=== PATIENT | female | born 1995 | race Caucasian/White ===

== ENCOUNTER 2019-07-30 08:16 | Outpatient (CLI) | payer BC, SELFPAY ==
[2019-07-31 10:14] LABS: FSH 3.7 mIU/mL (See Note); LH 4.9 mIU/mL (See Note)
[2019-07-31 11:50] LABS: Estradiol 51 pg/mL (See Note)
[2019-08-03 16:59] LABS: Antimullerian Hormone 6.7 ng/mL (0.9-9.5)
== END 2019-07-30 08:36 ==
PROVIDERS: PCP General Practice; Visit Provider Obstetrics & Gynecology Gynecology
DX: Z31.9 Encounter for procreative management, unspecified (principal)
CPT/HCPCS: 36415; 82670; 83001; 83002; 83520

== ENCOUNTER 2019-08-10 11:57 | Outpatient (CLI) | payer BC, SELFPAY ==
[2019-08-11 10:53] LABS: FSH 6.4 mIU/mL (See Note)
[2019-08-11 15:39] LABS: Estradiol 400 pg/mL (See Note)
== END 2019-08-10 12:17 ==
PROVIDERS: PCP General Practice; Visit Provider Obstetrics & Gynecology Gynecology
DX: Z31.9 Encounter for procreative management, unspecified (principal)
CPT/HCPCS: 36415; 82670; 83001

== ENCOUNTER 2019-09-15 02:05 | Outpatient (CLI) | payer BC, SELFPAY ==
--- NOTE | 2019-09-15 07:00 | DI.RAD_ITS ---
EXAM: RF HYSTEROSALPINGOGRAM CLINICAL HISTORY: assess tubal patency,desire for ,Z31.9 TECHNIQUE: 2D and realtime digital imaging was performed. Fluoro time: 0.13 sec, 5.36 mGy CONTRAST MATERIAL: Water soluble contrast was administered. COMPARISON: No exams were available for comparison FINDINGS: Fluoroscopically-guided hysterosalpingogram. The cervical opening was cannulated by Dr. Lo. Th en under fluoroscopic guidance, water-soluble contrast was injected in a retrograde fashion. The uterus fills normally, with no evidence of contour abnormality, filling defect, septum, stricture , mass, or bicornuate configuration. The bilateral uterine tubes are normal and patent with normal ra pid spillage of contrast into the peritoneum. IMPRESSION: Normal hysterosalpingogram.
[2019-09-15] MEDS: Omnipaque 350 MG/ML 50 ML BTL IV (10:27)
--- NOTE | 2019-09-15 12:16 | OPPNE_ITS ---
DATE OF SERVICE: SEPTEMBER 15, 2019 HPI Patient is a 24-year-old G0 female who presents to diagnostic imaging department for a hysterosalpingogram. Patient been counseled at previous office visit regarding the need for an evaluation of tubal patency. Approximately 2.5 years of unprotected intercourse with the same partner without . Laboratory analysis showed normal ovarian reserve and an intact hypothalamic pituitary axis. Exam Other: The patient on the exam table in diagnostic imaging her hips are elevated with use of a pillow in a bivalve speculum was placed in the vagina. The cervix was cleansed with Betadine and a HSG catheter was inserted into the uterine cavity and the bulb inflated and the catheter left in place. Under direct fluoroscopy 10 cc of water-soluble contrast material was injected into the uterine cavity and spillage of the dye was noted from the fallopian tubes bilaterally. At the completion of the procedure instruments removed from the patient's vagina. She was informed of the results of the test. She tolerated the procedure well.
== END 2019-09-15 02:25 ==
PROVIDERS: PCP General Practice; Visit Provider Obstetrics & Gynecology Gynecology
DX: Z31.41 Encounter for fertility testing (principal)
CPT/HCPCS: 58340; 76831; 74740; Q9967

== ENCOUNTER 2020-11-16 03:14 | Outpatient (CLI) | payer BC, SELFPAY ==
[2020-11-16 16:26] LABS: *AMPHETAMINES SCREEN URINE Negative (Negative); *BARBITURATES SCREEN URINE Negative (Negative); *BENZODIAZEPINES SCREEN URINE Negative (Negative); Cannabinoids THC Negative (Negative); Cocaine Screen,Urine Negative (Negative); METHADONE URINE SCREEN Negative (Negative); OPIATES URINE SCREEN Negative (Negative)
[2020-11-16 17:26] LABS: Tricyclic Antidepressants Negative (Negative)
[2020-11-17 14:03] LABS: Chlamydia Result Negative (Negative); GC Result Negative (Negative)
[2020-11-19 12:24] LABS: Buprenorphine Negative ng/mL (Cutoff: 5.0); Norbuprenorphine Negative ng/mL (Cutoff: 2.5)
== END 2020-11-16 03:15 | disposition home or self-care (01) ==
LOC: LBO 03:14
PROVIDERS: PCP General Practice; Visit Provider Advanced Practice Midwife
DX: Z34.91 Encounter for supervision of normal pregnancy, unspecified, first trimester (principal); Z11.3 Encounter for screening for infections with a predominantly sexual mode of transmission
CPT/HCPCS: 80307; 87491; 87591; 87086; 87480; 87510; 87660

== ENCOUNTER 2020-11-23 03:40 | Outpatient (CLI) | payer BC, SELFPAY ==
[2020-11-23 11:17] LABS: Kit/Specimen SENT
[2020-11-23 11:31] LABS: Glucose,1 Hr (Glucola) 92 mg/dL (80-140)
[2020-11-24 08:52] LABS: Hepatitis B Surface Ag Negative (Negative)
[2020-11-24 09:25] LABS: HIV-1/2 Ag & Ab Screen Negative (Negative)
[2020-11-24 09:44] LABS: Hepatitis C Ab w Rflx HCV PCR Negative (Negative)
[2020-11-24 09:52] LABS: Varicella IgG Antibody Positive (See Note)
[2020-11-24 09:55] LABS: Rubella IgG Ab (UVM) Positive (See Note)
[2020-11-25 11:24] LABS: Syphilis Total Ab w/Reflex Nonreactive (Nonreactive)
[2020-11-30 01:44] LABS: Specimen WB Whole Blood
[2020-12-06 02:35] LABS: Result Summary NEGATIVE; Specimen WB Whole Blood
== END 2020-11-23 03:41 | disposition home or self-care (01) ==
LOC: LBO 03:40
PROVIDERS: Advanced Practice Midwife; PCP General Practice; Visit Provider Advanced Practice Midwife
DX: Z34.91 Encounter for supervision of normal pregnancy, unspecified, first trimester (principal); Z11.4 Encounter for screening for human immunodeficiency virus [HIV]; Z11.59 Encounter for screening for other viral diseases; Z36.89 Encounter for other specified antenatal screening; Z01.84 Encounter for antibody response examination
CPT/HCPCS: 36415; 81329; 82950; 86787; 86803; 86850; 86900; 86901; 87340; 87389; 81220; 86762; 86780

== ENCOUNTER → 2021-03-03 04:31 | Outpatient (CLI) | payer BC, SELFPAY ==
--- NOTE | 2021-03-03 08:00 | DI.US_ITS ---
Exam(s) US OB JOEL WEIGHT EXAM: US OB JOEL WEIGHT CLINICAL HISTORY: borderline low JOEL,Z34.90 TECHNIQUE: Ultrasound performed using standard protocol. COMPARISON: US US OB 2-3 TRIMESTER from 01/23/2021 FINDINGS: Ob ultrasound was performed utilizing 2nd to 3rd trimester protocol. biometry is consistent wi th gestational age of 25 weeks 5 days and EDC of June 11. Estimated weight is 757 grams which is at the 81st percentile for predicted gestational age. Placenta is posterior with no placenta previa. There is visually a normal quantity of amniotic fluid and the JOEL is 14. heart rate was 149 BPM. IMPRESSION: DATA REPOSITORY:
== END ==
PROVIDERS: PCP General Practice; Visit Provider Advanced Practice Midwife
DX: Z34.92 Encounter for supervision of normal pregnancy, unspecified, second trimester (principal); Z3A.25 25 weeks gestation of pregnancy
CPT/HCPCS: 76816

== ENCOUNTER 2021-03-08 10:49 | Observation (INO) | payer BC, SELFPAY ==
[2021-03-08 11:03] LABS: Source Nasal/Nares
[2021-03-08 11:07] LABS: Bilirubin Negative (Negative); Blood Negative (Negative); Clarity Clear (Clear); Glucose Negative (Negative); Ketones Negative (Negative); Leukocyte Esterase Trace (Negative); Nitrite Negative (Negative); Urobilinogen 0.2 EU/dL (Up TO 0.2); pH 7.5 (5-8)
[2021-03-08 11:15] LABS: Bacteria Few HPF (Negative); C & S Indicated? No/Sq. Contamination; Casts 0-2 Hyaline LPF (Negative); Crystals Negative HPF (Negative); Epithelial Cells Moderate HPF (Negative); Mucus Negative (Negative); RBC Negative HPF (0-2); WBC Negative HPF (0-5)
[2021-03-08 11:21] LABS: *AMPHETAMINES SCREEN URINE Negative (Negative); *BARBITURATES SCREEN URINE Negative (Negative); *BENZODIAZEPINES SCREEN URINE Negative (Negative); Cannabinoids THC Negative (Negative); Cocaine Screen,Urine Negative (Negative); METHADONE URINE SCREEN Negative (Negative); OPIATES URINE SCREEN Negative (Negative)
[2021-03-08 11:22] LABS: Tricyclic Antidepressants Negative (Negative)
[2021-03-08 11:42] LABS: HCT 34.9 % (36.0-46.0); HGB 11.9 g/dL (11.2-15.7); MCH 32.3 pg (27.0-33.0); MCHC 34.1 % (32.0-36.0); MCV 94.8 fL (80-95); MPV 9.2 fL (8.0-11.0); Platelet Count 403 10^3/uL (130-400); RBC 3.68 10^6/uL (3.93-5.22); RDW 13.1 % (11.7-14.6); RDW-SD 45.8 fL; WBC 23.88 10^3/uL (4.4-10.8)
--- NOTE | 2021-03-08 11:43 | HPE_ITS ---
Date of service: 03/08/21 Time of Service: 11:44 Assessment and Plan Assessment and plan (1) Persistent dry cough: Status: Acute Assessment and plan: reports feeling ill for 2 weeks, reports having nega tive COVID screening recently. Cough is dry and irritating throat. Will give lozenges to sooth throat. Lungs CTA. CBC demonstrates WBC 23.88. Will review with MD as well. KH (2) : Status: Acute OB-HPI Labor/Delivery History of Present Illness Reason for Visit: feeling ill Chief Complaint: Other (dry cough, ill feeling, occasional low grade fevers to 100.4 over past 2 weeks. Reports she has been COVID tested and results were negative. Denies LOF or vaginal bleeding or leaking of fluid. Denies contractions. Baby has been active. states she last used tylenol yeasterday evening.). JULIUS Calculator Estimated Delivery Date Method Current WG Current Estimate 06/20/21 Ultrasound #1 25w 1d Other Estimates 06/12/21 LMP (Certain) 26w 2d History of Present Expected Delivery Route/Plan : uncertain if CNM or MD care FOB - Cristhian Galeana Specific Issues/Plan 1. Restless legs- takes Flexeril once per week. Magnesium daily recommended 2. First Trimester bleeding- US at DI WNL, Left CL cyst 3. BMI 33 - early GTT 92 4. [place], CF and SMA screenings at 10 wks. Results: low prob x3, female, CF/SMA neg. 5. Low back pain, stretches taught, consider PT. 6. seasonal allergies - zyrtec daily recommended - did not take 7. Headaches daily - magnesium daily recommended - did not take. 8. Anila declines covid vaccine, her partner is undecided 9. PCN allergy: ask screening questions 10. JOEL at anatomy US 8.2 Then follow up JOEL 03/03/21 is 14.0 Assessment: History Reviewed & Current Informed Consent Informed Consent: Other (COVID testing) Review of Systems All systems reviewed & are unremarkable except as noted in HPI and below [facility] Medical History Acquired absence of spleen Anxiety BMI 33.0-33.9,adult Depression Rx with Lexapro and Wellbutrin Insomnia Patient desires 09/15/19. spouse (Cristhian Galeana) [place] 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 No sequela Family History Father Heart disease Other Lung cancer Social History Smoking/Tobacco Use Status: Never Second Hand Exposure: Yes Smoking risk assessment performed?: Yes Alcohol Intake: current Alcohol Intake frequency: 0-2 drinks per day Details: Reports she does not drink to excess Drug use: Never Substance use type: does not use Household members: spouse Housing: apartment Number of Children: 0 current occupation: [employer] Sexually active: Yes Current gender identity: female What is your relationship status?: Panel score (0-1 are the most socially isolated patients): 1 Seatbelt use: always Female Reproductive History Menstrual Age of Menarche: 11 Duration of menses: other (Monthly menses) control method: none (X2.5 years) History History 1 Para 0 Hx # Term Pregnancies 0 Multiple births 0 Hx # Pregnancies 0 Ectopic pregnancies 0 AB induced 0 Hx Number of Living Children 0 AB spontaneous 0 Meds Allergies and Home Medications Allergies Allergy/AdvReac Type Severity Reaction Status Date / Time amoxicillin Allergy rash Verified 03/03/21 14:06 melatonin Allergy itchy skin Verified 03/03/21 14:06 Home Medications Medication Instructions Recorded Confirmed Type prenat.vits,yuniel,[id number] 1 tab PO DAILY 10/28/20 03/03/21 History aspirin 81 mg tablet,delayed 81 mg PO DAILY #90 tab 11/16/20 03/03/21 Rx release nitrofurantoin 100 mg PO BID 03/03/21 03/03/21 History monohydrate/macrocrystals 100 mg capsule Exam Physical Exam Vital Signs Reviewed: Yes Narrative: Bp 109/70 P 116 R 20 T98.5 F. KH Constitutional Constitutional: no acute distress and average body habitus Detailed Labor and Delivery Exam Sandhu Score: Cervical Points Exam 0 1 2 3 Dilation Closed 1-2cm 3-4 cm 5-6cm Effacement 0-30% 40-50% 60-70% 80% Consistency Firm Medium Soft Station -3 -2 -1,0 +1,+2 Position Posterior Mid Anterior Comments: No vaginal exam done as patient is here for feeling ill with cough and low grade fevers, no signs of labor. Initial urine dip indicates specific gravity 1.010 but + protein, will get pro/creat ratio as well. Fetus A Heart Rate Baseline: 150 Assessment Note: FHR tracing is broken due to frequent movement, 150's noted as baseline. KH HEENT Exam HEENT Exam: Normal Neck Exam Neck Exam: Normal Chest/Brest/Axilla Exam Chest Exam: Normal Breast Exam Breast Exam: Not Done Respiratory Exam Respiratory Exam: Abnormal (positive for dry cough, lungs CTA to bases) Cardiovascular Exam Cardiovascular Exam: Abnormal (HR auscultated 120) Abdominal Exam Abdominal Exam: Normal Rectal Exam Rectal Exam: Not Done Exam Exam: Not Done Extremities Exam Extremities Exam: Normal Back/Spine/Pelvis Exam Back Exam: Not Done Skin Exam Skin Exam: Normal Neurological Exam Neurological Exam: Normal Psychiatric Exam Psychiatric Exam: Normal Results Abnormal Lab Findings: Abnormal Labs 03/08/21 03/08/21 10:45 11:18 WBC 23.88 H RBC 3.68 L Hct 34.9 L Plt Count 403 H Urine Protein 30 H Ur Leukocyte Esterase Trace H Risk Assessment Risk for Shoulder Dystocia Historical/Initial OB: POSITIVE FOR: Pre- BMI>30 Date/Initial: 11/16/20KH Risk for Pre-Eclampsia Date Initiated/Initials: 11/16/20KH Yes, if one or more: NEGATIVE FOR: Hx Pre-E/Gest HTN, Chronic HTN, Multiple Gestation, Pre-gestational DM, Renal Disease, Systemic Lupus or APA Syndrome Yes, if 2 or more: POSITIVE FOR: Nulliparity and BMI>30 Risk for Post- Hemorrhage Initial: NEGATIVE FOR: Multiple Gestation, Previous PPH, Known Clotting Deficiency, Grand Multiparity or Anticoagulation Risks Reviewed Risks Reviewed Upon Admission: No (25 week antepartum assessment for feeling ill.ANNE)
[2021-03-08 12:10] VITALS: BP 109/70; PULSE 116; TEMP 36.9
[2021-03-08 12:23] LABS: COVID-19 PCR Negative (Negative)
[2021-03-08 12:51] VITALS: BP 109/70; PULSE 116; RESP 16; TEMP 36.9
[2021-03-08] MEDS: Normal Saline Flush 10 ML SYR ×2 (13:10→13:15)
--- NOTE | 2021-03-08 13:17 | DSE_ITS ---
Date of service: 03/08/21 Time of Service: 13:18 DS: Diagnosis Discharge Diagnosis (1) Persistent dry cough: Status: Acute Asessment and Plan: review of lab work, symptoms and physical exam with Dr. Boss done, will obtain tick/lyme panel and allow patient discharge to home to rest and remain hydrated with RTO in 2 days for follow up. (2) : Status: Acute Discharge Plan Disposition Patient Disposition: HOME Condition: Stable Discharge Details Reason For Visit: feeling ill Admit Date/Time: 03/08/21 10:49 Admit Provider: Lula Moore Attending Provider: Lula Moore Primary Care Provider: Yenifer Gutierrez Hospital Course Hospital Course: IV hydration, labs done, reviewed with Dr. Boss. Jessica, discharged to home for rest and hydration. Home Meds and New Rx's Prescriptions: Continued prenat.vits,yuniel,dpu-[id number] Tablet 1 tab PO DAILY RF: 0 nitrofurantoin monohyd/m-cryst [Macrobid] 100 mg capsule 100 mg PO BID RF: 0 aspirin [Adult Low Dose Aspirin] 81 mg tablet,delayed release (DR/EC) 81 mg PO DAILY Qty: 90 RF: 3 Discharge Instructions Activity:: Activity as Tolerated Equipment/Supplies:: No Equipment Needed Diet:: As Tolerated Discharge Orders Discharge Orders: Discharge Order (Routine); Ordered 03/08/21 Ordered By: Lula Moore OB:DS Summary Summary Vaginal Delivery Method: Other (N/A as patient is 25w1d.) Contraception Discussed Contraception Discussed: No, Status at Discharge Functional status at discharge: independent ambulation Overall status at discharge: patient is progressing back to baseline Mental Status: mental status grossly normal Speech and Movement: speech and movement normal Mood: congruent mood Affect: normal affect Time Spent with Patient providing and/or coordinating discharge services: Less than 30 minutes Specific discharge activities: rest and hydration, out of work as needed until 03/14/21, to follow up with 03/10/21.ANNE Quality: AMI Clinical Trial Participant: No Hospital Course Observation on Center due to persistent ill feeling with cough, reported fevers of 100.4 F and muscle aches. Negative for COVID per pateint prior to arrival and today. VS stable, labs and patient symptoms reviewed with Dr. Boss who believes that symptoms are related to viral illness. Will discharged to home with plan to follow UP with MD in 2 days and a note allowing her to be out of work until 03/14 if needed. Exam Physical Exam Vital signs: Temp Pulse Resp BP 98.4 F 116 H 16 109/70 03/08/21 12:51 03/08/21 12:51 03/08/21 12:51 03/08/21 12:51 Vital Signs Reviewed: Yes Constitutional Constitutional: no acute distress and average body habitus Comments: fatigued and has persistent dry cough, otherwise well. Good appetite and is able to tolerate PO hydration. HEENT Exam HEENT Exam: Normal Neck Exam Neck Exam: Normal Respiratory Exam Respiratory Exam: Normal Cardiovascular Exam Cardiovascular Exam: Normal (mild tachycardia.) Abdominal Exam Comments: non tender, gravid, size equals dates. Rectal Exam Rectal Exam: Not Done Extremities Exam Extremity Exam: Normal Back/Spine/Pelvis Exam Back Exam: Not Done Skin Exam Skin Exam: Normal Neurological Exam Neurological Exam: Normal Psychiatric Exam Psychiatric Exam: Normal [facility] Medical History Acquired absence of spleen Anxiety BMI 33.0-33.9,adult Depression Rx with Lexapro and Wellbutrin Insomnia Patient desires 09/15/19. spouse (Cristhian Galeana) [facility]. 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 No sequela Family History Father Heart disease Other Lung cancer Social History Smoking/Tobacco Use Status: Never Second Hand Exposure: Yes Smoking risk assessment performed?: Yes Alcohol Intake: current Alcohol Intake frequency: 0-2 drinks per day Details: Reports she does not drink to excess Drug use: Never Substance use type: does not use Household members: spouse Housing: apartment Number of Children: 0 current occupation: [employer] Sexually active: Yes Current gender identity: female What is your relationship status?: Panel score (0-1 are the most socially isolated patients): 1 Seatbelt use: always Do you feel safe at home: Yes Do you feel safe in your relationship?: Yes Female Reproductive History Menstrual Age of Menarche: 11 Duration of menses: other (Monthly menses) control method: none (X2.5 years) History History 1 Para 0 Hx # Term Pregnancies 0 Multiple births 0 Hx # Pregnancies 0 Ectopic pregnancies 0 AB induced 0 Hx Number of Living Children 0 AB spontaneous 0 DS: Data Vitals/I&O Vitals and I&O: Vital Signs Temperature 98.4 F 03/08/21 12:51 Pulse 116 H 03/08/21 12:51 Respiratory Rate 16 03/08/21 12:51 Blood Pressure 109/70 03/08/21 12:51 Oxygen Delivery Method Room Air 03/08/21 12:51 Oxygen Flow Rate 0 03/08/21 12:51 Intake & Output 03/07/21 03/08/21 03/08/21 23:59 11:59 23:59 Other: Urine Color Light Cherry Data Completed and Pending Labs on day of discharge: Labs from last 24 hours 03/08/21 03/08/21 03/08/21 Unknown 12:00 11:18 WBC 23.88 H RBC 3.68 L Hgb 11.9 Hct 34.9 L MCV 94.8 MCH 32.3 MCHC 34.1 RDW 13.1 Plt Count 403 H MPV 9.2 Urine Color Urine Clarity Urine pH Ur Specific [place] Urine Protein Urine Ketones Urine Blood Urine Nitrite Urine Bilirubin Urine Urobilinogen Ur Leukocyte Esterase Urine RBC Urine WBC Ur Epithelial Cells Urine Crystals Urine Bacteria Urine Casts Urine Mucus Ur Culture Indicated? Ur Random Creatinine Pending U Random Total Protein Pending U [place] Prot/Creat Ratio Pending Urine Glucose Urine Opiates Screen Urine Methadone Screen Ur Barbiturates Screen Ur Tricyclics Screen Ur Amphetamines Screen U Benzodiazepines Scrn Urine Cocaine Screen Ur THC Screen A.phagocytophil DNA PCR Pending B. divergens/MO-1 PCR Pending Babesia duncani (PCR) Pending Babesia microti DNA PCR Pending Borrelia (PCR) Pending Lyme Disease Antibody Pending COVID-19 Source SARS-CoV-2 (PCR) E.chaffeensis DNA (PCR) Pending E.ewingii/canis DNA PCR Pending E. muris-like DNA (PCR) Pending 03/08/21 03/08/21 03/08/21 10:45 10:45 10:45 WBC RBC Hgb Hct MCV MCH MCHC RDW Plt Count MPV Urine Color Yellow Urine Clarity Clear Urine pH 7.5 Ur Specific [place] 1.010 Urine Protein 30 H Urine Ketones Negative Urine Blood Negative Urine Nitrite Negative Urine Bilirubin Negative Urine Urobilinogen 0.2 Ur Leukocyte Esterase Trace H Urine RBC Negative Urine WBC Negative Ur Epithelial Cells Moderate Urine Crystals Negative Urine Bacteria Few Urine Casts 0-2 Hyaline Urine Mucus Negative Ur Culture Indicated? No/Sq. Contamination Ur Random Creatinine U Random Total Protein U [place] Prot/Creat Ratio Urine Glucose Negative Urine Opiates Screen Negative Urine Methadone Screen Negative Ur Barbiturates Screen Negative Ur Tricyclics Screen Negative Ur Amphetamines Screen Negative U Benzodiazepines Scrn Negative Urine Cocaine Screen Negative Ur THC Screen Negative A.phagocytophil DNA PCR B. divergens/MO-1 PCR Babesia duncani (PCR) Babesia microti DNA PCR Borrelia (PCR) Lyme Disease Antibody COVID-19 Source Nasal/Nares SARS-CoV-2 (PCR) Negative E.chaffeensis DNA (PCR) E.ewingii/canis DNA PCR E. muris-like DNA (PCR) 03/08/21 10:45 Urine - Clean Catch Urine Culture - Pending Preliminary micro results at discharge 03/08/21 10:45 Urine Culture - Pending Urine - Clean Catch
[2021-03-08 13:49] LABS: PROTEIN 37.7 mg/dL
[2021-03-08 13:50] LABS: COMMENT (LAB VIEW ONLY) 51.38 mg/dL; Prot/Crea Ur Ratio 0.73
[2021-03-09 11:07] LABS: Lyme Ab w Rflx to Lyme Confirm Negative (Negative)
[2021-03-10 05:42] LABS: Anaplasma phagocytophilum Negative (Negative); B. miyamotoi PCR Negative (Negative); Babesia divergens/MO-1 Negative (Negative); Babesia duncani Negative (Negative); Babesia microti Negative (Negative); Ehrlichia chaffeensis Negative (Negative); Ehrlichia ewingii/canis Negative (Negative); Ehrlichia muris eauclairensis Negative (Negative)
== END 2021-03-08 15:40 | disposition home or self-care (01) ==
PROVIDERS: Admitting Provider Advanced Practice Midwife; PCP General Practice; Visit Provider Advanced Practice Midwife
DX: O26.892 Other specified pregnancy related conditions, second trimester (principal); Z3A.25 25 weeks gestation of pregnancy; R05 Cough; R50.9 Fever, unspecified; Z90.81 Acquired absence of spleen; O99.342 Other mental disorders complicating pregnancy, second trimester; F41.8 Other specified anxiety disorders; G25.81 Restless legs syndrome; G47.00 Insomnia, unspecified
CPT/HCPCS: 80307; 85027; 87635; 87798; 81003; 81015; 82565; 84156; 86618; 87086; G0378

== ENCOUNTER 2021-03-10 14:44 | Outpatient (CLI) | payer BC, SELFPAY ==
[2021-03-10 16:14] LABS: Abs Immature Grans 0.69 10^3/uL (0.0-0.06); HCT 38.9 % (36.0-46.0); HGB 13.5 g/dL (11.2-15.7); MCH 32.5 pg (27.0-33.0); MCHC 34.7 % (32.0-36.0); MCV 93.7 fL (80-95); MPV 9.9 fL (8.0-11.0); Nucleated RBC 0 %; Platelet Count 414 10^3/uL (130-400); RBC 4.15 10^6/uL (3.93-5.22); RDW 13.4 % (11.7-14.6); RDW-SD 45.9 fL
[2021-03-10 16:49] LABS: Absolute Lymphocyte Count 18.65 10^3/uL (1.2-3.4); Absolute Monocyte Count 1.17 10^3/uL (0.1-0.8); Absolute Neutrophil Count 8.74 10^3/uL (1.2-6.7); Atypical Lymphocytes % 23; Bands % 2; Metamyelocytes % 2
[2021-03-10 16:50] LABS: Diff Comment Manual Differential; RBC Morphology Normal; WBC 29.14 10^3/uL (4.4-10.8)
[2021-03-10 17:38] LABS: Mono Screening Negative (Negative)
[2021-03-14 08:38] LABS: CMV DNA Detect/Quant, P 2920 IU/mL (Undetected)
== END 2021-03-10 14:45 | disposition home or self-care (01) ==
LOC: LBO 14:45
PROVIDERS: PCP General Practice; Visit Provider Obstetrics & Gynecology Gynecology
DX: O26.892 Other specified pregnancy related conditions, second trimester (principal); R50.9 Fever, unspecified; D72.829 Elevated white blood cell count, unspecified; Z3A.25 25 weeks gestation of pregnancy
CPT/HCPCS: 36415; 87040; 85025; 86308; 87497

== ENCOUNTER 2021-04-11 01:25 | Outpatient (CLI) | payer BC, SELFPAY ==
[2021-04-11 10:15] LABS: HCT 34.4 % (36.0-46.0); HGB 11.4 g/dL (11.2-15.7); MCH 32.6 pg (27.0-33.0); MCHC 33.1 % (32.0-36.0); MCV 98.3 fL (80-95); MPV 9.7 fL (8.0-11.0); Platelet Count 381 10^3/uL (130-400); RDW 14.2 % (11.7-14.6); RDW-SD 51.3 fL; WBC 12.28 10^3/uL (4.4-10.8)
[2021-04-11 10:23] LABS: Glucose,1 Hr (Glucola) 137 mg/dL (80-140)
[2021-04-11 10:26] LABS: Mono Screening Negative (Negative)
[2021-04-12 10:22] LABS: CMV IgG Antibody Positive (See Note)
[2021-04-13 10:36] LABS: CMV Ab, IgM Positive (Negative)
== END 2021-04-11 01:26 | disposition home or self-care (01) ==
LOC: LBO 01:25
PROVIDERS: Obstetrics & Gynecology Gynecology; PCP General Practice; Visit Provider Advanced Practice Midwife
DX: R50.9 Fever, unspecified; Z34.93 Encounter for supervision of normal pregnancy, unspecified, third trimester
CPT/HCPCS: 36415; 82950; 85027; 86308; 86644; 86645

== ENCOUNTER 2021-05-05 10:56 | Outpatient (CLI) | payer BC, SELFPAY ==
[2021-05-05 13:25] LABS: ALT 36 U/L (14-59); AST 33 U/L (15-37); Albumin 2.5 g/dL (3.4-5.0); Alkaline Phosphatase 155 U/L (46-116); Bilirubin, Direct 0.9 mg/dL (0.0-0.2); Bilirubin, Total 1.3 mg/dL (0.2-1.0); Total Protein 6.8 g/dL (6.4-8.2)
[2021-05-06 12:40] LABS: Bile Acids, Total 22 mcmol/L (<=10)
== END 2021-05-05 10:57 | disposition home or self-care (01) ==
PROVIDERS: PCP General Practice; Visit Provider Advanced Practice Midwife
DX: O99.713 Diseases of the skin and subcutaneous tissue complicating pregnancy, third trimester; L29.9 Pruritus, unspecified
CPT/HCPCS: 36415; 80076; 82239

== ENCOUNTER 2021-05-09 03:35 | Outpatient (CLI) | payer BC, SELFPAY ==
[2021-05-09 09:27] LABS: Glucose 1 Hour 186 mg/dL
[2021-05-09 11:43] LABS: Glucose 3 Hour 79 mg/dL
== END 2021-05-09 03:36 | disposition home or self-care (01) ==
LOC: LBO 03:35
PROVIDERS: PCP General Practice; Visit Provider Advanced Practice Midwife
DX: R73.09 Other abnormal glucose; Z34.93 Encounter for supervision of normal pregnancy, unspecified, third trimester
CPT/HCPCS: 36415; 82951

== ENCOUNTER 2021-05-12 07:50 | Outpatient (CLI) | payer BC, SELFPAY ==
[2021-05-12 11:44] VITALS: BP 102/75; PULSE 87; TEMP 37
[2021-05-12 12:10] VITALS: BP 102/75; PULSE 87
--- NOTE | 2021-05-12 12:25 | W.OBNST ---
Date of service: 05/12/21 Time of Service: 12:15 NST Evaluation Reason for NST Reasons for Nonstress Test: GDM-DIET CONTROLLED and OTHER, SEE COMMENT Reason for NST Other: cholestasis in third trimester, CMV infection during Gestational Age Gestational Age in Weeks and Days: 25 Weeks and 1Days Test and Monitor Explained Test/Monitor Explained: Test Explained, Monitor Explained and Patient Verbalized Understanding Vital Signs Blood Pressure: 102/75 Pulse: 87 NST Information NST Interventions: None Contraction Frequency: 0 NST Evaluation Patient States Movement: Present FHR Baseline: 130 Variability: Moderate 6-25 bpm Accelerations: 15x15 Decelerations: None NST Results: Reactive Note NST Note Note: Reactive NST. Patient is currently being [place] [facility] [place] and is doing NST's here for convenience as well as there for her visits. She is doing well today. She reports BG's have been normal by fingerstick with minimal dietary changes. She is doing well on Ursadiol for itching related to cholestasis. [facility] plans to do IOL at 37 weeks gestation. NST Reviewed and Verified by: Lula Moore
[2021-05-12 12:57] VITALS: BP 102/75; PULSE 87
== END 2021-05-12 12:20 | disposition home or self-care (01) ==
LOC: BCD 08:04 → OBS 11:43
PROVIDERS: PCP General Practice; Visit Provider Advanced Practice Midwife
DX: O24.410 Gestational diabetes mellitus in pregnancy, diet controlled (principal); O26.612 Liver and biliary tract disorders in pregnancy, second trimester; K83.8 Other specified diseases of biliary tract; Z3A.25 25 weeks gestation of pregnancy
CPT/HCPCS: 59025

== ENCOUNTER 2021-05-15 09:49 | Outpatient (CLI) | payer BC, SELFPAY ==
[2021-05-15 11:36] VITALS: BP 117/72; PULSE 105; TEMP 36.8
[2021-05-15 11:41] VITALS: BP 117/72; PULSE 103
--- NOTE | 2021-05-15 12:06 | PDOC.NST_ITS ---
Date of service: 05/15/21 Time of Service: 12:06 NST Evaluation Reason for NST Reasons for Nonstress Test: OTHER, SEE COMMENT Reason for NST Other: Cholestasis Gestational Age Gestational Age in Weeks and Days: 34 Weeks and 6Days Test and Monitor Explained Test/Monitor Explained: Test Explained, Monitor Explained and Patient Verbalized Understanding Vital Signs Blood Pressure: 117/72 Pulse: 105 Temperature: 98.3 F Urine Results Urine Protein: Negative Urine Ketones: Negative Urine Glucose: Negative Urine Blood: Positive NST Information Date on Monitor: 05/15/21 Time on Monitor: 11:38 Date off Monitor: 05/15/21 NST Interventions: PO Hydration, Reposition Patient and Other Note NST Note Note: Feeling well. Reports all finger stick BG's have been good even when she eats carbs. She [place] [facility] [place] to this. NST today is reactive and reassuring. Plans to return in 3 days for next NST. [place] [facility] [place]. NST Reviewed and Verified by: Lula Moore
[2021-05-15 12:08] VITALS: BP 117/72; PULSE 105; TEMP 36.8
== END 2021-05-15 12:14 | disposition home or self-care (01) ==
LOC: BCD 09:51 → OBS 10:53
PROVIDERS: PCP General Practice; Visit Provider Advanced Practice Midwife
DX: O26.613 Liver and biliary tract disorders in pregnancy, third trimester (principal); K83.1 Obstruction of bile duct; Z3A.34 34 weeks gestation of pregnancy
CPT/HCPCS: 59025

== ENCOUNTER 2021-05-18 07:36 | Outpatient (CLI) | payer BC, SELFPAY ==
[2021-05-18 11:50] VITALS: BP 112/75; PULSE 96; TEMP 36.8
[2021-05-18 11:55] VITALS: BP 112/75; PULSE 96
[2021-05-18 13:33] VITALS: BP 112/75; PULSE 96; TEMP 36.8
--- NOTE | 2021-05-18 13:33 | W.OBNST ---
Date of service: 05/18/21 Time of Service: 13:33 NST Evaluation Reason for NST Reasons for Nonstress Test: OTHER, SEE COMMENT Reason for NST Other: Colestasis Gestational Age Gestational Age in Weeks and Days: 35 Weeks and 2Days Test and Monitor Explained Test/Monitor Explained: Test Explained, Monitor Explained and Patient Verbalized Understanding Vital Signs Blood Pressure: 112/75 Pulse: 96 Temperature: 98.2 F NST Information Date on Monitor: 05/18/21 Time on Monitor: 11:40 Date off Monitor: 05/18/21 Time off Monitor: 12:25 Total Time on Monitor: 45 NST Interventions: PO Hydration NST Evaluation Patient States Movement: Present Variability: Moderate 6-25 bpm Accelerations: 15x15 Decelerations: None NST Results: Reactive Note NST Note Note: continue twice weekly NST NST Reviewed and Verified by: Lula Dixon
== END 2021-05-18 12:30 | disposition home or self-care (01) ==
LOC: BCD 07:37 → OBS 11:38
PROVIDERS: PCP General Practice; Visit Provider Advanced Practice Midwife
DX: O26.613 Liver and biliary tract disorders in pregnancy, third trimester (principal); K83.1 Obstruction of bile duct; Z3A.35 35 weeks gestation of pregnancy
CPT/HCPCS: 59025

== ENCOUNTER 2021-05-22 07:27 | Outpatient (CLI) | payer BC, SELFPAY ==
[2021-05-22 08:06] VITALS: BP 131/83; PULSE 100; TEMP 36.8
[2021-05-22 12:11] VITALS: BP 131/83; PULSE 100; TEMP 36.8
--- NOTE | 2021-05-22 12:11 | W.OBNST ---
Date of service: 05/22/21 Time of Service: 12:11 NST Evaluation Reason for NST Reasons for Nonstress Test: OTHER, SEE COMMENT Reason for NST Other: cholestasis Gestational Age Gestational Age in Weeks and Days: 35 Weeks and 6Days Test and Monitor Explained Test/Monitor Explained: Test Explained, Monitor Explained and Patient Verbalized Understanding Vital Signs Blood Pressure: 131/83 Pulse: 100 Temperature: 98.2 F NST Information Time on Monitor: 08:05 Date off Monitor: 05/22/21 NST Interventions: PO Hydration NST Evaluation Patient States Movement: Present FHR Baseline: 130 Variability: Moderate 6-25 bpm Accelerations: 15x15 Decelerations: None NST Results: Reactive Note NST Note Note: Continue twice weekly testing NST Reviewed and Verified by: Lula Dixon
== END 2021-05-22 08:35 | disposition home or self-care (01) ==
LOC: BCD 07:29 → OBS 08:02
PROVIDERS: PCP General Practice; Visit Provider Advanced Practice Midwife
DX: O26.613 Liver and biliary tract disorders in pregnancy, third trimester (principal); K83.1 Obstruction of bile duct; Z3A.35 35 weeks gestation of pregnancy
CPT/HCPCS: 59025

== ENCOUNTER 2021-05-25 07:16 | Outpatient (CLI) | payer BC, SELFPAY ==
[2021-05-25 11:19] VITALS: BP 117/76; PULSE 99; TEMP 36.7
[2021-05-25 11:22] VITALS: BP 117/76; PULSE 92
--- NOTE | 2021-05-25 12:08 | PDOC.NST_ITS ---
Date of service: 05/25/21 Time of Service: 12:09 NST Evaluation Reason for NST Reasons for Nonstress Test: OTHER, SEE COMMENT Reason for NST Other: Cholestasis Gestational Age Gestational Age in Weeks and Days: 36 Weeks and 2Days Test and Monitor Explained Test/Monitor Explained: Test Explained, Monitor Explained and Patient Verbalized Understanding Vital Signs Blood Pressure: 117/76 Pulse: 99 Temperature: 98.1 F Urine Results Urine Protein: Positive Urine Ketones: Negative Urine Glucose: Negative Urine Blood: Negative NST Information Date on Monitor: 05/25/21 Time on Monitor: 11: Date off Monitor: 05/25/21 Time off Monitor: 12:00 Total Time on Monitor: 39 NST Interventions: PO Hydration NST Evaluation Patient States Movement: Present FHR Baseline: 135 Variability: Moderate 6-25 bpm Accelerations: 15x15 and Prolonged Decelerations: None NST Results: Reactive Note NST Note Note: Next NST SaturdayMay 29, IOL at [facility] [place] is scheduled for May 30 NST Reviewed and Verified by: Cathi Gambino
[2021-05-25 12:09] VITALS: BP 117/76; PULSE 99; TEMP 36.7
== END 2021-05-25 12:04 | disposition home or self-care (01) ==
LOC: BCD 07:17 → OBS 11:21
PROVIDERS: PCP General Practice; Visit Provider Advanced Practice Midwife
DX: O26.613 Liver and biliary tract disorders in pregnancy, third trimester (principal); K83.1 Obstruction of bile duct; Z3A.36 36 weeks gestation of pregnancy
CPT/HCPCS: 59025

== ENCOUNTER 2021-05-29 09:15 | Outpatient (CLI) | payer BC, SELFPAY ==
[2021-05-29 11:16] VITALS: BP 115/78; PULSE 92; TEMP 36.7
[2021-05-29 11:19] VITALS: BP 115/78; PULSE 92
--- NOTE | 2021-05-29 14:05 | PDOC.NST_ITS ---
Date of service: 05/29/21 Time of Service: 14:06 NST Evaluation Reason for NST Reasons for Nonstress Test: OTHER, SEE COMMENT Reason for NST Other: Cholestasis Gestational Age Gestational Age in Weeks and Days: 36 Weeks and 6Days Test and Monitor Explained Test/Monitor Explained: Test Explained, Monitor Explained and Patient Verbalized Understanding Vital Signs Blood Pressure: 115/78 Pulse: 92 Temperature: 98.1 F NST Information Date on Monitor: 05/29/21 Time on Monitor: 11:15 Date off Monitor: 05/29/21 Time off Monitor: 11:50 Total Time on Monitor: 35 NST Interventions: None Contraction Frequency: none NST Evaluation Patient States Movement: Present FHR Baseline: 135 Variability: Moderate 6-25 bpm Accelerations: 15x15 Decelerations: None NST Results: Reactive Note NST Note Note: Scheduled for IOL tomorrow at [facility] NST Reviewed and Verified by: Cathi Gambino
[2021-05-29 14:06] VITALS: BP 115/78; PULSE 92; TEMP 36.7
== END 2021-05-29 11:50 | disposition home or self-care (01) ==
LOC: BCD 09:18 → OBS 11:13
PROVIDERS: PCP General Practice; Visit Provider Advanced Practice Midwife
DX: O26.613 Liver and biliary tract disorders in pregnancy, third trimester (principal); K83.1 Obstruction of bile duct; Z3A.36 36 weeks gestation of pregnancy
CPT/HCPCS: 59025

== ENCOUNTER 2022-02-01 20:52 | Outpatient (REF) | payer BC, SELFPAY ==
[2022-02-03 13:40] LABS: Chlamydia Result Negative (Negative); GC Result Negative (Negative)
== END 2022-02-01 20:53 | disposition home or self-care (01) ==
LOC: LBN 20:52
PROVIDERS: PCP General Practice; Visit Provider Advanced Practice Midwife
DX: N89.8 Other specified noninflammatory disorders of vagina (principal); N90.89 Other specified noninflammatory disorders of vulva and perineum
CPT/HCPCS: 87491; 87591; 87480; 87510; 87660

== ENCOUNTER 2022-11-08 02:01 | Outpatient (CLI) | payer BC, SELFPAY ==
[2022-11-08 14:38] LABS: Panorama Kit Sent via Fed Ex
[2022-11-08 14:43] LABS: Abs Immature Grans 0.04 10^3/uL (0.0-0.06); Absolute Eosinophil Count 0.31 10^3/uL (0.0-0.7); Absolute Lymphocyte Count 4.95 10^3/uL (1.2-3.4); Absolute Monocyte Count 1.15 10^3/uL (0.1-0.8); Basophils % 0.5; Eosinophils % 2.4; HGB 12.9 g/dL (11.2-15.7); Immature Grans % 0.3; Lymphocytes % 37.8; MCH 31.5 pg (27.0-33.0); MCHC 34.9 % (32.0-36.0); MCV 90 fL (80-95); MPV 8.8 fL (8.0-11.0); Monocytes % 8.8; Neutrophils % 50.2; Platelet Count 462 10^3/uL (130-400); RDW 13.6 % (11.7-14.6); RDW-SD 45.4 fL; WBC 13.09 10^3/uL (4.4-10.8)
[2022-11-08 14:47] LABS: Absolute Basophil Count 0.07 10^3/uL (0.0-0.2); Absolute Neutrophil Count 6.57 10^3/uL (1.2-6.7)
[2022-11-08 14:51] LABS: Glucose,1 Hr (Glucola) 87 mg/dL (80-140)
[2022-11-09 09:38] LABS: Hepatitis B Surface Ag Negative (Negative)
[2022-11-09 10:12] LABS: Hepatitis C Ab w Rflx HCV PCR Negative (Negative)
[2022-11-11 10:41] LABS: Bile Acids, Total 5 mcmol/L (<=10)
[2022-11-12 11:10] LABS: Varicella IgG Antibody Positive (See Note)
[2022-11-12 11:14] LABS: Rubella IgG Ab (UVM) Positive (See Note)
[2022-11-12 12:10] LABS: HIV-1/2 Ag & Ab Screen Negative (Negative)
[2022-11-13 14:52] LABS: Syphilis IgG w/Reflex Nonreactive (Nonreactive)
== END 2022-11-08 02:02 | disposition home or self-care (01) ==
LOC: LBO 02:01
PROVIDERS: Advanced Practice Midwife; PCP General Practice; Visit Provider Advanced Practice Midwife
DX: Z34.91 Encounter for supervision of normal pregnancy, unspecified, first trimester (principal); Z86.32 Personal history of gestational diabetes; Z3A.12 12 weeks gestation of pregnancy
CPT/HCPCS: 36415; 82950; 86787; 86803; 86850; 86900; 86901; 87340; 87389; 82239; 85025; 86762; 86780

== ENCOUNTER 2022-11-08 16:58 | Outpatient (REF) | payer BC, SELFPAY ==
--- NOTE | 2022-11-08 13:30 | PAPFT_PTH ---
PATIENT: Anila Galeana LOC: [facility] U#:[id number] AGE/SX: 27/F ROOM: RE11/08/[address]: Lula Moore CNM : 1995 BED: DIS: 11/08/2022 SPEC #: [id number] RECD: 11/08/22 18:32 STATUS: KARUNA REQ #: [id number] JAZLYN: 11/08/22 13:[address]: Lula Moore DEPT: [facility] Cytology RECD BY: Rosa Isela Deal ENTERED: 11/08/22 18:32 SP TYPE: PAPFT OTHR DR: Yenifer Gutierrez Tissues: 1 - CX/ENDOCX FOR PAP SMEARS Procedures: PAP THIN PREP/[facility] Screening Comments: [id number] (CHLAMYDIA/GC)
[2022-11-08 17:51] LABS: *AMPHETAMINES SCREEN URINE Negative (Negative); *BARBITURATES SCREEN URINE Negative (Negative); *BENZODIAZEPINES SCREEN URINE Negative (Negative); Cannabinoids THC Negative (Negative); Cocaine Screen,Urine Negative (Negative); METHADONE URINE SCREEN Negative (Negative); OPIATES URINE SCREEN Negative (Negative)
[2022-11-08 18:22] LABS: Tricyclic Antidepressants Negative (Negative)
[2022-11-09 13:29] LABS: Chlamydia Result Negative (Negative); GC Result Negative (Negative)
[2022-11-17 00:54] LABS: Buprenorphine Negative ng/mL (Cutoff: 5.0); Norbuprenorphine Negative ng/mL (Cutoff: 2.5)
== END 2022-11-08 16:59 | disposition home or self-care (01) ==
LOC: LBN 16:58
PROVIDERS: PCP General Practice; Visit Provider Advanced Practice Midwife
DX: Z34.91 Encounter for supervision of normal pregnancy, unspecified, first trimester (principal); Z11.3 Encounter for screening for infections with a predominantly sexual mode of transmission; Z3A.12 12 weeks gestation of pregnancy; Z12.4 Encounter for screening for malignant neoplasm of cervix
CPT/HCPCS: 80307; 80348; 87491; 87591; 88142; 87086

== ENCOUNTER 2023-02-20 03:45 | Outpatient (CLI) | payer BC, SELFPAY ==
[2023-02-20 07:20] LABS: HCT 36.2 % (36.0-46.0); HGB 12.6 g/dL (11.2-15.7); MCH 33.6 pg (27.0-33.0); MCHC 34.8 % (32.0-36.0); MCV 97 fL (80-95); MPV 9.1 fL (8.0-11.0); Platelet Count 363 10^3/uL (130-400); RBC 3.75 10^6/uL (3.93-5.22); RDW 13.4 % (11.7-14.6); RDW-SD 47.6 fL; WBC 12.24 10^3/uL (4.4-10.8)
[2023-02-20 09:08] LABS: Glucose 1 Hour 121 mg/dL
[2023-02-20 11:28] LABS: Glucose 3 Hour 107 mg/dL
== END 2023-02-20 03:46 | disposition home or self-care (01) ==
LOC: LBO 03:45
PROVIDERS: PCP General Practice; Visit Provider Advanced Practice Midwife
DX: Z34.92 Encounter for supervision of normal pregnancy, unspecified, second trimester (principal); O09.292 Supervision of pregnancy with other poor reproductive or obstetric history, second trimester; Z86.32 Personal history of gestational diabetes
CPT/HCPCS: 36415; 85027; 82951

== ENCOUNTER 2023-04-09 07:52 | Outpatient (CLI) | payer BC, SELFPAY ==
--- NOTE | 2023-04-09 | DI.US_ITS ---
Exam(s) US RENAL EXAM: US RENAL CLINICAL HISTORY: gross hematuria at 34w3d gestation. TECHNIQUE: Alva scale, color and spectral Doppler were used. COMPARISON: No exams were available for comparison FINDINGS: Renal size in cm: Right: 12.7 left: 12.6 Echogenicity: Normal Hydronephrosis: Mild dilatation of both renal pelves.. Cyst or mass: No Nephrolithiasis: No visible calculi. Bladder:Normal . No stones or wall thickening. Both ureteral jets were visualized. Prevoid vol:111 Postvoid vol:0 IMPRESSION: Mild bilateral hydronephrosis. No stone is visible. DATA REPOSITORY:
[2023-04-09 08:02] VITALS: BP 109/68; PULSE 93; TEMP 36.8
[2023-04-09 08:23] VITALS: BP 109/68; PULSE 93
[2023-04-09 09:02] LABS: HCT 33.4 % (36.0-46.0); HGB 11.3 g/dL (11.2-15.7); MCH 31.7 pg (27.0-33.0); MCHC 33.8 % (32.0-36.0); MCV 94 fL (80-95); MPV 9.4 fL (8.0-11.0); Platelet Count 473 10^3/uL (130-400); RBC 3.56 10^6/uL (3.93-5.22); RDW 12.7 % (11.7-14.6); RDW-SD 44.2 fL; WBC 11.51 10^3/uL (4.4-10.8)
--- NOTE | 2023-04-09 09:08 | W.OBNST ---
Date of service: 04/09/23 Time of Service: 09:08 NST Evaluation Reason for NST Reasons for Nonstress Test: OTHER, SEE COMMENT Reason for NST Other: Blood in urine Gestational Age Gestational Age in Weeks and Days: 34 Weeks and 3Days Test and Monitor Explained Test/Monitor Explained: Test Explained Vital Signs Blood Pressure: 109/68 Pulse: 93 Temperature: 98.2 F Urine Results Urine Protein: Positive Urine Ketones: Negative Urine Glucose: Negative Urine Blood: Positive NST Information Date on Monitor: 04/09/23 Time on Monitor: 07:55 Date off Monitor: 04/09/23 Time off Monitor: 08:26 Total Time on Monitor: 31 NST Interventions: PO Hydration NST Evaluation Patient States Movement: Present FHR Baseline: 135 Variability: Moderate 6-25 bpm Accelerations: 15x15 Decelerations: None NST Results: Reactive Note Ultrasound Done: N/A. NST Note Note: NST done due to reported gross hematuria that happened once yesterday then cleared and had clear urine throughout the night and then first void this am was gross hematuria again. She is not having dysuria or fever. Urine culture obtained. SSE negative for blood in vagina, cervix closed and thick. GC CT and vaginal pathogen obtained. CBC and CMP ordered. Consult with Dr. Lo done and Physician agrees with CNM plan for renal US. Patient will have US done stat and then return to [facility] for follow up. Keflex 500 mg every 6 hours with a single dose started before she leaves for US on BC will be done. RX will be sent to [facility] in [place] per patient request. NST is reactive and reassuring. NST Reviewed and Verified by: Lula Moore
[2023-04-09 09:11] VITALS: BP 109/68; PULSE 93; TEMP 36.8
[2023-04-09] MEDS: Cephalexin 500 MG CAP PO (09:16)
[2023-04-09 09:17] LABS: ALT 17 U/L (14-59); AST 11 U/L (15-37); Albumin 2.3 g/dL (3.4-5.0); Alkaline Phosphatase 105 U/L (46-116); Anion Gap 8.6 mmol/L (3-11); BUN 6 mg/dL (7-18); Bilirubin, Total 0.4 mg/dL (0.2-1.0); CO2 24.4 mmol/L (21.0-32.0); CREATININE 0.5 mg/dL (0.55-1.02); Calcium 8.1 mg/dL (8.5-10.1); Chloride 105 mmol/L (98-107); Estimated GFR 132.57 (mL/min/1.73m2); Glucose 113 mg/dL (74-106); Potassium 3.6 mmol/L (3.5-5.1); Sodium 138 mmol/L (136-145); Total Protein 6.4 g/dL (6.4-8.2)
[2023-04-10 13:29] LABS: Chlamydia Result Negative (Negative); GC Result Negative (Negative)
== END 2023-04-09 09:15 | disposition home or self-care (01) ==
LOC: BCD 07:53 → OBS 07:57
PROVIDERS: PCP General Practice; Visit Provider Advanced Practice Midwife
DX: O26.893 Other specified pregnancy related conditions, third trimester (principal); N13.2 Hydronephrosis with renal and ureteral calculous obstruction; Z3A.34 34 weeks gestation of pregnancy
CPT/HCPCS: 36415; 76770; 80053; 85027; 87491; 87591; 59025; 87086; 87480; 87510; 87660

== ENCOUNTER 2023-04-19 09:49 | Outpatient (REF) | payer BC, SELFPAY ==
[2023-04-19 10:58] LABS: *AMPHETAMINES SCREEN URINE Negative (Negative); *BARBITURATES SCREEN URINE Negative (Negative); *BENZODIAZEPINES SCREEN URINE Negative (Negative); Cannabinoids THC Negative (Negative); Cocaine Screen,Urine Negative (Negative); METHADONE URINE SCREEN Negative (Negative); OPIATES URINE SCREEN Negative (Negative)
[2023-04-19 10:59] LABS: Tricyclic Antidepressants Negative (Negative)
[2023-04-25 14:12] LABS: Buprenorphine Negative ng/mL (Cutoff: 5.0)
== END 2023-04-19 09:50 | disposition home or self-care (01) ==
LOC: LBN 09:49
PROVIDERS: PCP General Practice; Visit Provider Advanced Practice Midwife
DX: Z34.93 Encounter for supervision of normal pregnancy, unspecified, third trimester (principal); Z36.85 Encounter for antenatal screening for Streptococcus B; Z3A.36 36 weeks gestation of pregnancy
CPT/HCPCS: 80307; 80348; 87081

== ENCOUNTER 2023-05-08 12:55 | Outpatient (CLI) | payer BC, SELFPAY ==
[2023-05-08 13:05] VITALS: BP 112/76; PULSE 91
[2023-05-08 13:16] VITALS: BP 115/77; PULSE 94
[2023-05-08 13:24] VITALS: BP 113/69; PULSE 90
[2023-05-08 13:52] VITALS: BP 113/69; PULSE 90; TEMP 36.6
--- NOTE | 2023-05-08 14:36 | W.OBNST ---
Date of service: 05/08/23 Time of Service: 14:00 NST Evaluation Reason for NST Reasons for Nonstress Test: OTHER, SEE COMMENT Reason for NST Other: Edema Gestational Age Gestational Age in Weeks and Days: 38 Weeks and 4Days Test and Monitor Explained Test/Monitor Explained: Test Explained, Monitor Explained and Patient Verbalized Understanding Vital Signs Blood Pressure: 113/69 Pulse: 90 Temperature: 97.9 F NST Information Date on Monitor: 05/08/23 Time on Monitor: 12:53 Date off Monitor: 05/08/23 Time off Monitor: 13:30 Total Time on Monitor: 37 NST Interventions: PO Hydration and Notify Provider NST Evaluation Patient States Movement: Present FHR Baseline: 135 Variability: Moderate 6-25 bpm Accelerations: 15x15 Decelerations: None NST Results: Reactive Note Ultrasound Done: N/A. NST Note NST Reviewed and Verified by: Nan Gambino
[2023-05-08 14:37] VITALS: BP 113/69; PULSE 90; TEMP 36.6
== END 2023-05-08 14:00 | disposition home or self-care (01) ==
LOC: BCD 12:56 → OBS 13:00
PROVIDERS: PCP General Practice; Visit Provider Advanced Practice Midwife
DX: O26.893 Other specified pregnancy related conditions, third trimester (principal); R60.9 Edema, unspecified; Z3A.38 38 weeks gestation of pregnancy
CPT/HCPCS: 59025

== ENCOUNTER 2023-05-13 09:59 | Outpatient (CLI) | payer BC, SELFPAY ==
[2023-05-13 10:06] VITALS: BP 117/75; PULSE 92; TEMP 37
[2023-05-13 10:08] VITALS: BP 115/75; PULSE 92
--- NOTE | 2023-05-13 11:59 | W.OBNST ---
Date of service: 05/13/23 Time of Service: 11:59 NST Evaluation Reason for NST Reasons for Nonstress Test: GESTATIONAL HYPERTENSION Gestational Age Gestational Age in Weeks and Days: 39 Weeks and 2Days Test and Monitor Explained Test/Monitor Explained: Test Explained Vital Signs Blood Pressure: 117/75 Pulse: 92 Temperature: 98.6 F NST Information Time on Monitor: 09:45 Date off Monitor: 05/13/23 Time off Monitor: 10:18 NST Interventions: None NST Evaluation Patient States Movement: Present FHR Baseline: 140 Variability: Moderate 6-25 bpm Accelerations: 15x15 Decelerations: None NST Results: Reactive Note Ultrasound Done: N/A. NST Note Note: BP elevated at the office and pedal edema in right foot. Urine protein/creatinene ratio sent to the lab. Reactive NST and BP WNL. Followup with NST and BP recheck with Vanna Moore on 05/16. Signs of preeclampsia reviewed. Awaiting protein/creatinene ratio NST Reviewed and Verified by: Lula Dixon
[2023-05-13 12:01] VITALS: BP 117/75; PULSE 92; TEMP 37
== END 2023-05-13 10:19 ==
LOC: BCD 10:03 → OBS 10:04
PROVIDERS: PCP General Practice; Visit Provider Advanced Practice Midwife
DX: O13.3 Gestational [pregnancy-induced] hypertension without significant proteinuria, third trimester (principal); Z3A.39 39 weeks gestation of pregnancy
CPT/HCPCS: 80053; 59025; 84550

== ENCOUNTER 2023-05-13 16:32 | Outpatient (CLI) | payer BC, SELFPAY ==
[2023-05-13 14:40] LABS: HCT 33.5 % (36.0-46.0); HGB 11.2 g/dL (11.2-15.7); MCHC 33.4 % (32.0-36.0); MCV 93 fL (80-95); MPV 10.4 fL (8.0-11.0); Platelet Count 373 10^3/uL (130-400); RBC 3.61 10^6/uL (3.93-5.22); WBC 9.94 10^3/uL (4.4-10.8)
[2023-05-13 15:42] LABS: ALT 16 U/L (14-59); AST 16 U/L (15-37); Albumin 2.5 g/dL (3.4-5.0); Alkaline Phosphatase 159 U/L (46-116); Anion Gap 8.4 mmol/L (3-11); BUN 8 mg/dL (7-18); Bilirubin, Total 0.4 mg/dL (0.2-1.0); CO2 23.6 mmol/L (21.0-32.0); CREATININE 0.7 mg/dL (0.55-1.02); Calcium 9.1 mg/dL (8.5-10.1); Chloride 107 mmol/L (98-107); Estimated GFR 122.25 (mL/min/1.73m2); Glucose 112 mg/dL (74-106); Potassium 3.6 mmol/L (3.5-5.1); Sodium 139 mmol/L (136-145); Total Protein 6.7 g/dL (6.4-8.2); Uric Acid 5.5 mg/dL (2.6-6.0)
== END 2023-05-13 16:33 | disposition home or self-care (01) ==
LOC: LBO 16:32
PROVIDERS: PCP General Practice; Visit Provider Advanced Practice Midwife
DX: O12.13 Gestational proteinuria, third trimester
CPT/HCPCS: 36415; 80053; 85027; 84550

== ENCOUNTER 2023-05-13 17:47 | Outpatient (REF) | payer BC, SELFPAY ==
[2023-05-13 10:51] LABS: COMMENT (LAB VIEW ONLY) 187.79 mg/dL; Prot/Crea Ur Ratio 0.53
== END 2023-05-13 17:48 | disposition home or self-care (01) ==
LOC: LBN 17:47
PROVIDERS: PCP General Practice; Visit Provider Advanced Practice Midwife
DX: O12.13 Gestational proteinuria, third trimester (principal); Z3A.39 39 weeks gestation of pregnancy
CPT/HCPCS: 82565; 84156

== ENCOUNTER 2023-05-16 08:28 | Outpatient (CLI) | payer BC, SELFPAY ==
[2023-05-16 08:49] VITALS: BP 117/76; PULSE 88; TEMP 36.9
[2023-05-16 09:03] VITALS: BP 117/76; PULSE 88
--- NOTE | 2023-05-16 09:55 | W.OBNST ---
Date of service: 05/16/23 Time of Service: 09:55 NST Evaluation Reason for NST Reasons for Nonstress Test: OTHER, SEE COMMENT Reason for NST Other: protienuria Gestational Age Gestational Age in Weeks and Days: 39 Weeks and 5Days
--- NOTE | 2023-05-16 10:05 | W.OBNST ---
Date of service: 05/16/23 Time of Service: 09:45 NST Evaluation Reason for NST Reasons for Nonstress Test: OTHER, SEE COMMENT Reason for NST Other: protienuria Gestational Age Gestational Age in Weeks and Days: 39 Weeks and 2Days Test and Monitor Explained Test/Monitor Explained: Test Explained, Monitor Explained and Patient Verbalized Understanding Vital Signs Blood Pressure: 117/76 Pulse: 88 Temperature: 98.4 F Urine Results Urine Protein: Positive Urine Ketones: Negative Urine Glucose: Negative Urine Blood: Negative NST Information Date on Monitor: 05/16/23 Time on Monitor: 09:00 Date off Monitor: 05/16/23 Time off Monitor: 09:30 Total Time on Monitor: 30 NST Interventions: Other Contraction Frequency: 0 NST Evaluation Patient States Movement: Present FHR Baseline: 130 Variability: Moderate 6-25 bpm Accelerations: 15x15 Decelerations: None NST Results: Reactive Note Ultrasound Done: N/A. NST Note Note: Anila had NST today for proteinuria affecting . She is considering induction of labor. VE 4-5 cm. She will call CNM later today to inform CNM of date/time for induction or if she desires continued expectant management until Sunday 05/20. NST is reactive and reassuring. ANNE NST Reviewed and Verified by: Lula Moore
[2023-05-16 10:09] VITALS: BP 117/76; PULSE 88; TEMP 36.9
== END 2023-05-16 10:00 ==
LOC: BCD 08:29 → OBS 08:37
PROVIDERS: PCP General Practice; Visit Provider Advanced Practice Midwife
DX: O12.13 Gestational proteinuria, third trimester (principal); Z3A.39 39 weeks gestation of pregnancy
CPT/HCPCS: 59025

== ENCOUNTER 2023-05-17 07:56 | Inpatient (IN) | payer BC, SELFPAY ==
[2023-05-17] VITALS (12 sets, daily range): BP systolic 108–142; BP diastolic 58–87; PULSE 90–106; RESP 16–20; TEMP 36.7–37.4
--- NOTE | 2023-05-17 07:59 | HPE_ITS ---
Date of service: 05/17/23 Time of Service: 08:45 Assessment and Plan Assessment and plan (1) Proteinuria affecting : Status: Acute Assessment and plan: 1. Induction of labor has been reviewed with patient as well as expectant management. She prefers to move forward with induction of labor. Will admit, get labs including clean catch urine due to recent protein in urine and CMP for same reason, CBC and type and screen. 2. Plan pitocin induction. Patient has had pitocin in past and verbalizes understanding of its use, risks and benefits and alternatives. She denies questions. 3. Dr. Boss is aware of plan of care and agrees with CN plan. 4. Will expect NVD. Taylor score 10 at start of induction. KH OB-HPI Labor/Delivery History of Present Illness Reason for Visit: CNM Chief Complaint: Scheduled Induction of Labor (proteinuira affecting in third trimester) Indication for Induction: Other. JULIUS Calculator Estimated Delivery Date Method Current WG Current Estimate 05/18/23 LMP (Certain) 39w 6d Other Estimates 05/16/23 Ultrasound #1 40w 1d Comments: Anila presents for induction of labor due to recent onset of protien creat ratio of 0.53 without evidence of pre-eclampsia and mild swelling in lower extremities. She had VE yesterday 4-5/80/-1 soft taylor of 10. She has had induction in past with pitocin and verbalizes understanding of its use and risks/benefits. Denies questions. Does not plan epidural for pain management. Would like to use nitrous if possible. Denies MELENDREZ, visual disturbance or epigastric pain. KH History of Present Expected Delivery Route/Plan - CNM FOB/ - Cristhian Galeana (2nd child together) BB yes to circ / GBS neg Specific Issues/Plan 1. Early 1 hour GTT- 87, due to history of GDM diet controlled and BMI >30 1a. 3-hr GTT at 28 weeks-91/121/137/107 2. Bile acids drawn with initial OB due to history of cholestasis- result 5 3. Desires cfDNA: LR male, previously known CF and SMA neg, declines AFP 4. Anatomy survey @ 19 wks is nml, anterior placenta, EFW in 94th percentile 5. Intermittent gross hematuria at 34 weeks 5a. Urine culture pending 04/09-antibiotics escribed, 5b. renal US mild bilateral hydronephrosis, normal jets, no stones 5c. Consult done with Dr. Lo 5d. 04/10-preliminary urine culture neg- cranberry tablets recommended. 6. Pedal edema , protein/creatinene 0.53, normotensive, Repeat labs and NST 05/16____ Assessment: History Reviewed & Current Informed Consent Informed Consent: Induction of Labor and Risk,Benefits,Alternatives Discussed Review of Systems All systems reviewed & are unremarkable except as noted in HPI and below PFSH All Active Problems Proteinuria affecting (Acute) Edema during in third trimester (Acute) Intermittent gross hematuria (Acute) (Acute) History of cholestasis during (Acute) Vaginal irritation (Acute) Lactating mother (Acute) Allergy to amoxicillin (Acute) Migraine (Chronic) BMI 33.0-33.9,adult (Acute) Restless leg syndrome, controlled (Acute) Insomnia (Acute) Anxiety (Chronic) Medical History Previous gestational diabetes mellitus, antepartum Lump of left breast Gestational diabetes Cholestasis during in third trimester Pruritus of in third trimester Elevated glucose tolerance test Maternal cytomegalovirus infection affecting in second trimester, antepartum Fever of unknown origin 02/26/2021 initial evaluation at [facility]. 03/03, 03/10/2021: Leukocytosis with elevated lymphocytes. Blood cultures Monospot and CMV test pending Persistent dry cough Miscarriage, threatened, early Positive test Patient desires 09/15/19. spouse (Cristhian Galeana) [facility]. Acquired absence of spleen Depression Rx with Lexapro and Wellbutrin Infertility 04/2019 unprotected intercourse for 2-1/2 years. No history STI. Normal TSH prolactin. H-Cristhian to have semen analysis through PCP. 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 No sequela Family History Father No problems noted. Paternal Grandmother , Smoker Cancer Lung cancer Maternal Grandmother , Smoker Cancer Lung cancer Other Adopted Social History Smoking/Tobacco Use Status: Never Second Hand Exposure: Yes (as child) Smoking risk assessment performed?: Yes Alcohol Intake: former Details: Reports she does not drink to excess Drug use: Never Substance use type: does not use Adopted: Yes Household members: spouse and children Housing: apartment Number of Children: 1 Communication Needs: None Education Level: college current occupation: WIRELESS RETAIL MANAGER Pets and animals: Yes Pets and animals: dog(s) Sexually active: Yes Current gender identity: female What is your relationship status?: Panel score (0-1 are the most socially isolated patients): 1 What type of physical activity do you participate in: walking Duration: 15-30 minutes/day Frequency: 3-4 times per week Special ela needs: No Agree to transfusion: Yes Seatbelt use: always Drive intox or ride w/intox tour bus driver: No Do you feel safe at home: Yes Do you feel safe in your relationship?: Yes Victim of physical abuse: No Victim of emotional abuse: No Victim of sexual abuse: No Female Reproductive History Menstrual Age of Menarche: 11 Duration of menses: other control method: none History History 2 Para 1 Hx # Term Pregnancies 1 Multiple births 0 Hx # Pregnancies 0 Ectopic pregnancies 0 AB induced 0 Hx Number of Living Children 1 AB spontaneous 0 Past Pregnancies Del. Date GA/Weeks # Preg Succ Route Wgt Sex Labor Lgth Anesth esia Location [facility] 05/10/21 37 No Yes vaginal 7 lb 2 oz Female 9 hours [facility] Delivery Date: 05/10/21 Last Updated by: Lula Dixon CNM Tx to [facility] @ 26 wks for cholestasis, CMV and covid infections in third trimester, IOL at 37 wks due to CMV infection. Meds Allergies and Home Medications Allergies Allergy/AdvReac Type Severity Reaction Status Date / Time amoxicillin Allergy rash Verified 05/17/23 08:07 melatonin Allergy itchy skin Verified 05/17/23 08:07 Home Medications Medication Instructions Recorded Confirmed Type prenat.vits,yuniel,yww-nniy-lxwbf 1 tab PO DAILY 09/24/22 05/17/23 History Exam Physical Exam Vital signs: BP 118/87 HR 103 Vital Signs Reviewed: Yes Constitutional Constitutional: no acute distress and obese Detailed Labor and Delivery Exam Dilation: 4.5 Effacement (%): 80 station: -1 Position: WILLIS Cervix position: mid Consistency: soft Taylor Score: Cervical Points Exam 0 1 2 3 Dilation Closed 1-2cm 3-4 cm 5-6cm Effacement 0-30% 40-50% 60-70% 80% Consistency Firm Medium Soft Station -3 -2 -1,0 +1,+2 Position Posterior Mid Anterior TAYLOR Score(Cervical Ripeness Score): 10 Amniotic Membrane Status: Intact Monitor Mode: External Contraction Frequency(min): irreg Contraction Intensity: Mild Fetus A Heart Rate Baseline: 140 Monitor Accelerations: 15 X 15 Variability: Moderate (6-25 BPM) Categories: Category I Est. Weight: 8 lb 6 oz HEENT Exam HEENT Exam: Normal Neck Exam Neck Exam: Normal (visual exam) Chest/Brest/Axilla Exam Chest Exam: Normal Breast Exam Breast Exam: Not Done Respiratory Exam Respiratory Exam: Normal Cardiovascular Exam Cardiovascular Exam: Normal Abdominal Exam Abdominal Exam: Normal (size equals dates) Rectal Exam Rectal Exam: Not Done Exam Exam: Normal Extremities Exam Extremities Exam: Abnormal (1+ edema of ankles bilaterally) Back/Spine/Pelvis Exam Back Exam: Normal Pelvis Adequate: Yes Skin Exam Skin Exam: Normal Neurological Exam Neurological Exam: Normal Psychiatric Exam Psychiatric Exam: Normal Results Results Group Beta Strep: Negative Blood Type: O+ Rubella Status: Immune Varicella Immunity: Immune Lab Results: early glucose 87, did 3 hour GTT at 28 weeks due to history of GDM, F91, 1h 121, 2h 137, 3h 107. cfDNA low risk, male gender. CF and SMA negative. HIV, Hep B and C neg, Syphilis neg, GC CT neg. Risk Assessment Risk for Shoulder Dystocia Historical/Initial OB: POSITIVE FOR: Pre- BMI>30; NEGATIVE FOR: Pelvic Abnormality, Previous Shoulder Dystocia or Previous Macrosomia 36 Weeks: NEGATIVE FOR: Current Gestational DM, EFW>4500gms or Maternal Weight Gain>40lbs Date/Initial: 11/16/20ANNE Delivery Plan @ 36wks: JOSE ENRIQUE RODRÍGUEZ Delivery Plan @ 40 wks: JOSE ENRIQUE. ANNE Risk for Pre-Eclampsia Yes, if one or more: NEGATIVE FOR: Hx Pre-E/Gest HTN, Chronic HTN, Multiple Gestation, Pre-gestational DM, Renal Disease, Systemic Lupus or APA Syndrome Yes, if 2 or more: POSITIVE FOR: BMI>30 Risk for Post- Hemorrhage Initial: NEGATIVE FOR: Multiple Gestation, Previous PPH, Known Clotting Deficiency, Grand Multiparity or Anticoagulation 36 Weeks: NEGATIVE FOR: Anemia, hgb<10, Low platelets(thrombocytopenia), Gestational HTN or Pre-E, Polyhydraminios or EFW>4500gms 40 Weeks: NEGATIVE FOR: Anemia, hgb<10, Low platelets (thrombocytopenia), Gestation HTN or Pre-E, Polyhydraminios or EFW>4500gms Counseled re: Active Management: Yes Date/Initials: 05/17/23 KH Risks Reviewed Risks Reviewed Upon Admission: Yes (will monitor for pre-eclampsia risk due to protein in urine. otherwise low )
[2023-05-17 08:35] LABS: HCT 34.1 % (36.0-46.0); HGB 11.7 g/dL (11.2-15.7); MCH 31.7 pg (27.0-33.0); MCHC 34.3 % (32.0-36.0); MCV 92 fL (80-95); MPV 10.5 fL (8.0-11.0); Platelet Count 364 10^3/uL (130-400); RBC 3.69 10^6/uL (3.93-5.22); RDW 12.9 % (11.7-14.6); RDW-SD 43.8 fL; WBC 11.79 10^3/uL (4.4-10.8)
[2023-05-17 08:38] LABS: COMMENT (LAB VIEW ONLY) 74.46 mg/dL; PROTEIN 36.3 mg/dL; Prot/Crea Ur Ratio 0.48
[2023-05-17 08:42] LABS: ALT 17 U/L (14-59); AST 14 U/L (15-37); Albumin 2.5 g/dL (3.4-5.0); Alkaline Phosphatase 169 U/L (46-116); Anion Gap 12.5 mmol/L (3-11); BUN 5 mg/dL (7-18); Bilirubin, Total 0.5 mg/dL (0.2-1.0); CO2 21.5 mmol/L (21.0-32.0); CREATININE 0.6 mg/dL (0.55-1.02); Calcium 8.8 mg/dL (8.5-10.1); Chloride 105 mmol/L (98-107); Estimated GFR 126.87 (mL/min/1.73m2); Glucose 119 mg/dL (74-106); Potassium 3.5 mmol/L (3.5-5.1); Sodium 139 mmol/L (136-145); Total Protein 6.8 g/dL (6.4-8.2)
[2023-05-17] MEDS: Oxytocin/Normal Saline 30 UNIT/500 ML BAG 2 UNITS IV (08:50)
[2023-05-17] MEDS: Lactated Ringers 1,000 ML 125 ML IV ×2 (08:52→16:21)
[2023-05-17] MEDS: Normal Saline Flush 10 ML SYR IVP (08:52)
[2023-05-17 09:41] LABS: Source Nasal/Nares
[2023-05-17 10:13] LABS: COVID-19 PCR Negative (Negative)
--- NOTE | 2023-05-17 12:35 | W.PM.OBNL1 ---
Date of service: 05/17/23 Time of Service: 12:35 Informed Consent Informed Consent: Induction of Labor and Risk,Benefits,Alternatives Discussed Pelvic Exam Comments: deferred, not in active labor yet. Contractions Monitor Mode: External Contraction Frequency(min): 2-4 Contraction Duration(sec): 30-60 Intensity: Mild/Moderate Fetus A Monitor: Novii Heart Rate Baseline: 125 Variability: Moderate (6-25 BPM) Categories: Category I Accelerations: Present Decelerations: None Assessment and Plan Assessment and plan (1) Proteinuria affecting : Status: Acute Assessment and plan: 1. Pitocin is at 16mu, increasing every 30 minutes. 2. VE deferred per patient request 3. Reassess in 2 hours or prn. Continue to expect NVD. Objective Abnormal lab results 05/17/23 Range/Units 08:14 WBC 11.79 H (4.4-10.8) 10^3/uL RBC 3.69 L (3.93-5.22) 10^6/uL Hct 34.1 L (36.0-46.0) % Anion Gap 12.5 H (3-11) mmol/L BUN 5 L (7-18) mg/dL Glucose 119 H (74-106) mg/dL AST 14 L (15-37) U/L Alkaline Phosphatase 169 H (46-116) U/L Albumin 2.5 L (3.4-5.0) g/dL Temp Pulse Resp BP 98.4 F 105 H 16 108/60 05/17/23 08:30 05/17/23 12:32 05/17/23 08:30 05/17/23 12:32 Laboratory Results WBC 11.79 10^3/uL (4.4-10.8) H 05/17/23 08:14 RBC 3.69 10^6/uL (3.93-5.22) L 05/17/23 08:14 Hgb 11.7 g/dL (11.2-15.7) 05/17/23 08:14 Hct 34.1 % (36.0-46.0) L 05/17/23 08:14 MCV 92 fL (80-95) 05/17/23 08:14 MCH 31.7 pg (27.0-33.0) 05/17/23 08:14 MCHC 34.3 % (32.0-36.0) 05/17/23 08:14 RDW 12.9 % (11.7-14.6) 05/17/23 08:14 Plt Count 364 10^3/uL (130-400) 05/17/23 08:14 MPV 10.5 fL (8.0-11.0) 05/17/23 08:14 Sodium 139 mmol/L (136-145) 05/17/23 08:14 Potassium 3.5 mmol/L (3.5-5.1) 05/17/23 08:14 Chloride 105 mmol/L (98-107) 05/17/23 08:14 Carbon Dioxide 21.5 mmol/L (21.0-32.0) 05/17/23 08:14 Anion Gap 12.5 mmol/L (3-11) H 05/17/23 08:14 BUN 5 mg/dL (7-18) L 05/17/23 08:14 Creatinine 0.6 mg/dL (0.55-1.02) 05/17/23 08:14 Est GFR (CKD-EPI 2020) 126.87 (mL/min/1.73m2) 05/17/23 08:14 Glucose 119 mg/dL (74-106) H 05/17/23 08:14 Calcium 8.8 mg/dL (8.5-10.1) 05/17/23 08:14 Total Bilirubin 0.5 mg/dL (0.2-1.0) 05/17/23 08:14 AST 14 U/L (15-37) L 05/17/23 08:14 ALT 17 U/L (14-59) 05/17/23 08:14 Alkaline Phosphatase 169 U/L (46-116) H 05/17/23 08:14 Total Protein 6.8 g/dL (6.4-8.2) 05/17/23 08:14 Albumin 2.5 g/dL (3.4-5.0) L 05/17/23 08:14 Ur Random Creatinine 74.46 mg/dL 05/17/23 08:03 U Random Total Protein 36.3 mg/dL 05/17/23 08:03 U [place] Prot/Creat Ratio 0.48 05/17/23 08:03 COVID-19 Source Nasal/Nares 05/17/23 09:15 SARS-CoV-2 (PCR) Negative (Negative) 05/17/23 09:15 Patient ABO/Rh O Positive 05/17/23 08:14 Antibody Screen NEGATIVE 05/17/23 08:14 Vital Signs Reviewed: Yes Subjective Interval history since last seen: Anila is starting to feel contractions but is doing well with them. Would like to rest and avoid VE at this time. KH Results Hemoglobin/Hematocrit: Hgb 11.7 g/dL (11.2-15.7) 05/17/23 08:14 Hct 34.1 % (36.0-46.0) L 05/17/23 08:14 Abnormal Lab Findings: Abnormal Labs 05/17/23 08:14 WBC 11.79 H RBC 3.69 L Hct 34.1 L Anion Gap 12.5 H BUN 5 L Glucose 119 H AST 14 L Alkaline Phosphatase 169 H Albumin 2.5 L
--- NOTE | 2023-05-17 15:27 | PGE_ITS ---
Date of service: 05/17/23 Time of Service: 15:20 Informed Consent Informed Consent: Induction of Labor and Risk,Benefits,Alternatives Discussed Pelvic Exam Dilation: 6 Effacement (%): 90 station: -1 Cervix Position: mid Contractions Monitor Mode: External Contraction Frequency(min): 2-3 Contraction Duration(sec): 60 Intensity: Moderate Fetus A Monitor: Novii Heart Rate Baseline: 144 Variability: Moderate (6-25 BPM) Categories: Category I Accelerations: Present Decelerations: None Amniotic Membrane Status: Ruptured Rupture Method: Artifical Amniotic Fluid: Clear Amount: small amount Assessment and Plan Assessment and plan (1) Proteinuria affecting : Status: Acute Assessment and plan: 1. Pitocin is at 20 mu, consult with Dr. Boss done, can increase as long as FHR remains reassuring 2. AROM performed, small amount of fluid. Will leave pitocin at current rate and monitor for next 30-60 minutes and if needed increase pitocin. 3. Continue to expect NVD. KH Objective Abnormal lab results 05/17/23 Range/Units 08:14 WBC 11.79 H (4.4-10.8) 10^3/uL RBC 3.69 L (3.93-5.22) 10^6/uL Hct 34.1 L (36.0-46.0) % Anion Gap 12.5 H (3-11) mmol/L BUN 5 L (7-18) mg/dL Glucose 119 H (74-106) mg/dL AST 14 L (15-37) U/L Alkaline Phosphatase 169 H (46-116) U/L Albumin 2.5 L (3.4-5.0) g/dL Temp Pulse Resp BP 98.8 F 97 H 16 130/83 05/17/23 12:32 05/17/23 14:30 05/17/23 08:30 05/17/23 14:30 Laboratory Results WBC 11.79 10^3/uL (4.4-10.8) H 05/17/23 08:14 RBC 3.69 10^6/uL (3.93-5.22) L 05/17/23 08:14 Hgb 11.7 g/dL (11.2-15.7) 05/17/23 08:14 Hct 34.1 % (36.0-46.0) L 05/17/23 08:14 MCV 92 fL (80-95) 05/17/23 08:14 MCH 31.7 pg (27.0-33.0) 05/17/23 08:14 MCHC 34.3 % (32.0-36.0) 05/17/23 08:14 RDW 12.9 % (11.7-14.6) 05/17/23 08:14 Plt Count 364 10^3/uL (130-400) 05/17/23 08:14 MPV 10.5 fL (8.0-11.0) 05/17/23 08:14 Sodium 139 mmol/L (136-145) 05/17/23 08:14 Potassium 3.5 mmol/L (3.5-5.1) 05/17/23 08:14 Chloride 105 mmol/L (98-107) 05/17/23 08:14 Carbon Dioxide 21.5 mmol/L (21.0-32.0) 05/17/23 08:14 Anion Gap 12.5 mmol/L (3-11) H 05/17/23 08:14 BUN 5 mg/dL (7-18) L 05/17/23 08:14 Creatinine 0.6 mg/dL (0.55-1.02) 05/17/23 08:14 Est GFR (CKD-EPI 2020) 126.87 (mL/min/1.73m2) 05/17/23 08:14 Glucose 119 mg/dL (74-106) H 05/17/23 08:14 Calcium 8.8 mg/dL (8.5-10.1) 05/17/23 08:14 Total Bilirubin 0.5 mg/dL (0.2-1.0) 05/17/23 08:14 AST 14 U/L (15-37) L 05/17/23 08:14 ALT 17 U/L (14-59) 05/17/23 08:14 Alkaline Phosphatase 169 U/L (46-116) H 05/17/23 08:14 Total Protein 6.8 g/dL (6.4-8.2) 05/17/23 08:14 Albumin 2.5 g/dL (3.4-5.0) L 05/17/23 08:14 Ur Random Creatinine 74.46 mg/dL 05/17/23 08:03 U Random Total Protein 36.3 mg/dL 05/17/23 08:03 U [place] Prot/Creat Ratio 0.48 05/17/23 08:03 COVID-19 Source Nasal/Nares 05/17/23 09:15 SARS-CoV-2 (PCR) Negative (Negative) 05/17/23 09:15 Patient ABO/Rh O Positive 05/17/23 08:14 Antibody Screen NEGATIVE 05/17/23 08:14 Results Hemoglobin/Hematocrit: Hgb 11.7 g/dL (11.2-15.7) 05/17/23 08:14 Hct 34.1 % (36.0-46.0) L 05/17/23 08:14 Abnormal Lab Findings: Abnormal Labs 05/17/23 08:14 WBC 11.79 H RBC 3.69 L Hct 34.1 L Anion Gap 12.5 H BUN 5 L Glucose 119 H AST 14 L Alkaline Phosphatase 169 H Albumin 2.5 L
[2023-05-17] MEDS: miSOPROStol 200 MCG TAB 800 MCG SL (16:48)
--- NOTE | 2023-05-17 17:07 | OBVDS_ITS ---
Date of service: 05/17/23 Time of Service: 17:07 OB Labor/ Delivery Information Baby A Delivery Delivery Method: Spontaneaous Presentation: Cephalic Cephalic Position: Vertex Vertex Position: Right Occipital Anterior Cord Description-Baby A: 3 Vessels, Nuchal Cord (X 1 loose) and Clamped/Cut Amniotic Fluid: Clear Estimated Blood Loss: 600 Delivery Outcome: Liveborn Complications: nuchal cord X 1 loose, reduced after shoulders delivered Transferred: Remains with Mother Note: Anila presented today at 0800 for induction of labor due to recent onset of lower extremity edema and proteinuria. She had pitocin induction. She progressed to 10 cm with strong urge to push at 1619. She pushed with encouragement to head delivering at 1634. She was immediately repositioned to laying back with knees pulled back and directly coached to push hard as she had been screaming and not effectively pushing and, marketing copywriter assisted in delivering posterior arm which was baby's right. Live male delivered GAUTAM at 1637. There was a nuchal cord loose times 1 and baby was delivered through cord as it was not able to be reduced. Cord was double clamped and cut and baby was transferred immediately to pre- heated warmer for PPV and assessment. at 1 minute 2 but baby quickly recovered and was crying and moving all extremities with good tone, good HR and respiratory effort by 2-3 minutes of life. 5 minute 8. Pitocin was given IV and placenta delivered via rivas mechanism, intact at 1644. Fundus firmed with massage and initial blood loss was approximately 300cc. Then after 5 minutes she had another gush of blood and fundus was again assessed and lower uterine segment examined by provider and was firm. No clots. 800 mcg of misoprostol was given PO. Perineum and vaginal inspected and other than small 1st degree hemostatic laceration at vaginal introitus, she was intact. Sponge, needle and instrument count are correct. Anila plans to breast feed her son. Weigth 10lb 8oz. 3 vessel cord. Total EBL 600cc. Pediatrics provider was called and came to assess baby shortly after delivery and rooming in and routine care was recommended. Expect normal PP course with discharge to home 24- 48 hours post delivery. Providers Nurse Shift Supervisor Melting: Lula Moore Labor/Delivery Information Number of Babies in Womb: 1 Group Beta Strep: Negative Rubella Status: Immune Blood Type: O+ Varicella Immunity: Immune Shoulder Dystocia: Yes Note: Head crowned and delivered at 1634 and patient was unable to focus and push as she was screaming, We repositioned her to laying head down and McRobert's manuever was used. She was strongly coached to push and with assistance of CNM delivering posterior shoulder she was able to push and deliver her son at 1637. KH Stages of Labor Complete Dilatation Date: 05/17/23 Complete Dilatation Time: 16:19 ROM Baby A: 05/10/23 ROM Baby A: 15:23 Infant Delivery Date-Baby A: 05/17/23 Delivery Time-Baby A: 16:37 Labor Stage 2 Duration: 18 minutes Placenta Delivery Date-Baby A: 05/17/23 Placenta Delivery Time-Baby A: 16:44 Labor-Stage 3 Duration: 7 minutes Placenta Status: Delivered Baby A Infant Gender: Male
[2023-05-17] MEDS: Ibuprofen 600 MG TAB PO (17:53)
[2023-05-17] MEDS: Acetaminophen 325 MG TAB 650 MG PO ×2 (17:53→22:11)
[2023-05-17] MEDS: Dibucaine 1% 28 GM TUBE TP (17:55)
[2023-05-17] MEDS: Hamamelis Leaf/Glycerin 100 EACH BOX PR (17:55)
[2023-05-18] MEDS: Ibuprofen 600 MG TAB PO ×2 (00:47→09:02)
[2023-05-18 00:54] VITALS: BP 102/68; PULSE 84; RESP 16; TEMP 36.8; O2SAT 100
[2023-05-18] MEDS: Acetaminophen 325 MG TAB 650 MG PO ×3 (04:01→12:45)
[2023-05-18 08:45] VITALS: BP 116/83; PULSE 97; RESP 12; TEMP 37.1
--- NOTE | 2023-05-18 12:39 | W.PM.OBPNV1 ---
Date of service: 05/18/23 Time of Service: 12:39 Assessment and Plan Assessment and plan (1) care following vaginal delivery: Status: Acute Assessment and plan: 1. continue present management 2. Discharge to home at 24 hours if baby is allowed to be discharged. Subjective Subjective Interval history: Anila is doing well. No complaints. Breast feeding is going well. Is hoping to go home this evening. Othello baby status: Doing well, Nursing well and Rooming in Exam Physical Exam Vital signs: Temp Pulse Resp BP Pulse Ox 98.8 F 97 H 12 116/83 100 05/18/23 08:45 05/18/23 08:45 05/18/23 08:45 05/18/23 08:45 05/18/23 00:54 Vital Signs Reviewed: Yes Constitutional Constitutional: no acute distress, average body habitus and cooperative HEENT Exam HEENT Exam: Normal Neck Exam Neck Exam: Normal (normal visual inspection) Respiratory Exam Respiratory Exam: Normal Cardiovascular Exam Cardiovascular Exam: Normal Abdominal Exam Abdomen: Other (normal exam) Fundal Exam Fundus: Below Umbilicus and Firm Comment: small lochia noted. Rectal Exam Rectal Exam: Not Done Exam Perineum: Intact and Normal Extremities Exam Extremity Exam: Normal (denies calf tenderness) and Full ROM Back/Spine/Pelvis Exam Back Exam: Normal Skin Exam Skin Exam: Normal Neurological Exam Neurological Exam: Normal Psychiatric Exam Psychiatric Exam: Normal Results Hemoglobin/Hematocrit: Hgb 11.7 g/dL (11.2-15.7) 05/17/23 08:14 Hct 34.1 % (36.0-46.0) L 05/17/23 08:14 Abnormal Lab Findings: Abnormal Labs 05/17/23 08:14 WBC 11.79 H RBC 3.69 L Hct 34.1 L Anion Gap 12.5 H BUN 5 L Glucose 119 H AST 14 L Alkaline Phosphatase 169 H Albumin 2.5 L
[2023-05-18 18:00] VITALS: BP 132/76; PULSE 100; RESP 20; TEMP 37
--- NOTE | 2023-05-18 18:52 | W.PM.OBDISCH ---
Date of service: 05/18/23 Time of Service: 18:52 DS: Diagnosis Discharge Diagnosis (1) care following vaginal delivery: Status: Acute Asessment and Plan: 1. normal PP course following vaginal delivery over 1st degree perineal laceration without repair. 2. Reviewed PP warnings 3. Will return to [facility] in 2 and 6 weeks 4. Will return for outpatient circumcision with Cj Gambino CNM per previous agreement in the next week 5. No medication for discharge needed. Discharge Plan Disposition Patient Disposition: Home Condition: Good Discharge Details Reason For Visit: Proteinuuria affecting pregnacy in third trimester Admit Date/Time: 05/17/23 07:56 Admit Provider: Johnna Boss Attending Provider: Lula Moore Primary Care Provider: Yenifer Gutierrez Hospital Course Hospital Course: Induction of labor for lower extremity swelling and proteinuria. Vaginal delivery of 10lb 8oz boy with mild shoulder dystocia which resolved with directed pushing, Sergio and CNM assisting posterior shoulder to deliver first. Normal PP course. Breast feeding well established. Home Meds and New Rx's Prescriptions: Continued prenat.vits,yuniel,[id number] Tablet 1 tab PO DAILY Discharge Instructions Stand Alone Forms: Instructions, Post Vaginal Deliver Activity:: Activity as Tolerated Equipment/Supplies:: No Equipment Needed Diet:: As Tolerated Discharge Orders Discharge Orders: Discharge Order (Routine); Ordered 05/18/23 Ordered By: Lula Moore OB:DS Summary Summary Vaginal Delivery Method: Spontaneaous Episiotomy Description: None Laceration Description: None Laceration Extension: N/A Contraception Discussed Contraception Discussed: Yes Contraceptive Plan: Undecided, Jackson Gender-Baby A: Male weight: 10 lb 8.257 oz Disposition of Baby A: Home Status at Discharge Functional status at discharge: independent ambulation Overall status at discharge: patient is back to baseline Mental Status: mental status grossly normal Speech and Movement: speech and movement normal Mood: congruent mood Affect: normal affect Time Spent with Patient providing and/or coordinating discharge services: Less than 30 minutes Exam Physical Exam Vital signs: Temp Pulse Resp BP Pulse Ox 98.8 F 97 H 12 116/83 100 05/18/23 08:45 05/18/23 08:45 05/18/23 08:45 05/18/23 08:45 05/18/23 00:54 Vital Signs Reviewed: Yes Constitutional Constitutional: no acute distress, average body habitus and cooperative HEENT Exam HEENT Exam: Normal Neck Exam Neck Exam: Normal (normal visual inspection) Respiratory Exam Respiratory Exam: Normal Cardiovascular Exam Cardiovascular Exam: Normal Abdominal Exam Abdomen: Other (normal exam) Fundal Exam Fundus: Below Umbilicus and Firm Comment: small lochia noted. KH Rectal Exam Rectal Exam: Not Done Exam Perineum: Intact and Normal Extremities Exam Extremity Exam: Normal (denies calf tenderness) and Full ROM Back/Spine/Pelvis Exam Back Exam: Normal Skin Exam Skin Exam: Normal Neurological Exam Neurological Exam: Normal Psychiatric Exam Psychiatric Exam: Normal PFSH All Active Problems (Updated 05/18/23 @ 12:41 by Lula Moore CNM) care following vaginal delivery (Acute) (Acute) Lactating mother (Acute) BMI 33.0-33.9,adult (Acute) Anxiety (Chronic) Medical History (Updated 05/18/23 @ 12:41 by Lula Moore CNM) Proteinuria affecting Edema during in third trimester Intermittent gross hematuria History of cholestasis during Vaginal irritation Allergy to amoxicillin Migraine Restless leg syndrome, controlled Insomnia Previous gestational diabetes mellitus, antepartum Lump of left breast Gestational diabetes Cholestasis during in third trimester Pruritus of in third trimester Elevated glucose tolerance test Maternal cytomegalovirus infection affecting in second trimester, antepartum Fever of unknown origin 02/26/2021 initial evaluation at [facility]. 03/03, 03/10/2021: Leukocytosis with elevated lymphocytes. Blood cultures Monospot and CMV test pending Persistent dry cough Miscarriage, threatened, early Positive test Patient desires 09/15/19. spouse (Cristhian Galeana) [facility]. Acquired absence of spleen Depression Rx with Lexapro and Wellbutrin Infertility 04/2019 unprotected intercourse for 2-1/2 years. No history STI. Normal TSH prolactin. H-Cristhian to have semen analysis through PCP. 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 No sequela Family History Father No problems noted. Paternal Grandmother , Smoker Cancer Lung cancer Maternal Grandmother , Smoker Cancer Lung cancer Other Adopted Social History Smoking/Tobacco Use Status: Never Second Hand Exposure: Yes (as child) Smoking risk assessment performed?: Yes Alcohol Intake: former Details: Reports she does not drink to excess Drug use: Never Substance use type: does not use Adopted: Yes Household members: spouse and children Housing: apartment Number of Children: 1 Communication Needs: None Education Level: college current occupation: [employer] Pets and animals: Yes Pets and animals: dog(s) Sexually active: Yes Current gender identity: female What is your relationship status?: Panel score (0-1 are the most socially isolated patients): 1 What type of physical activity do you participate in: walking Duration: 15-30 minutes/day Frequency: 3-4 times per week Special ela needs: No Agree to transfusion: Yes Seatbelt use: always Drive intox or ride w/intox limousine driver: No Do you feel safe at home: Yes Do you feel safe in your relationship?: Yes Victim of physical abuse: No Victim of emotional abuse: No Victim of sexual abuse: No Female Reproductive History Menstrual Age of Menarche: 11 Duration of menses: other control method: none History History 2 Para 1 Hx # Term Pregnancies 1 Multiple births 0 Hx # Pregnancies 0 Ectopic pregnancies 0 AB induced 0 Hx Number of Living Children 1 AB spontaneous 0 Past Pregnancies Del. Date GA/Weeks # Preg Succ Route Wgt Sex Labor Lgth Anesthesia Location Prov Compl 05/10/21 37 No Yes vaginal 7 lb 2 oz [place] 9 [place] [facility] [place] Date: 05/10[place]21 Last Updated by: Lula Dixon CNM [place] [facility] [place] [facility] [place] 26 w[place] for cholestasis, CMV and covid infections in third trimester, IOL at 37 wks due to CMV infection. DS: Data Vitals/I&O Vitals and I&O: Vital Signs Temperature 98.8 F 05/18/23 08:45 Temperature Source Oral 05/18/23 08:45 Pulse 97 H 05/18/23 08:45 Pulse Rhythm Regular 05/17/23 19:55 Respiratory Rate 12 05/18/23 08:45 Blood Pressure 116/83 05/18/23 08:45 Blood Pressure Mean 94 05/18/23 08:45 Pulse Oximetry 100 05/18/23 00:54 Oxygen Delivery Method Room Air 05/17/23 08:15 Oxygen Flow Rate 0 05/17/23 08:15 Pain Level 5 05/18/23 12:45 Comment refusing VS at this time 05/17/23 16:05 Intake & Output 05/17/23 05/18/23 05/18/23 23:59 11:59 23:59 Intake Total 1014.383 / 1034.516 Output Total 1600 / 1600 Balance -585.617 / -565.484 Intake: IV 1014.383 / 1034.516 Output: Urine 1600 / 1600 Other: Urine Color Yellow Urine Appearance Clear Urine Odor Normal Comment small clot about the size of a half dollar large void unmeasured Voiding Methods Toilet Data Completed and Pending Labs on day of discharge: Preliminary micro results at discharge 05/17/23 08:03 Urine Culture - Preliminary Urine - Clean Catch Gram Positive Desiree,Mixed
[2023-05-18] MEDS: Dibucaine 1% 28 GM TUBE TP (19:12)
[2023-05-18] MEDS: Hamamelis Leaf/Glycerin 100 EACH BOX PR (19:12)
== END 2023-05-18 20:10 | disposition home or self-care (01) | DRG 806 ==
PROVIDERS: Admitting Provider Obstetrics & Gynecology; PCP General Practice; Visit Provider Advanced Practice Midwife
DX: O12.24 Gestational edema with proteinuria, complicating childbirth (principal); O99.354 Diseases of the nervous system complicating childbirth; Z37.0 Single live birth; Z3A.39 39 weeks gestation of pregnancy; O69.81X0 Labor and delivery complicated by cord around neck, without compression, not applicable or unspecified; O99.344 Other mental disorders complicating childbirth; G47.00 Insomnia, unspecified; G43.909 Migraine, unspecified, not intractable, without status migrainosus; G25.81 Restless legs syndrome; F41.8 Other specified anxiety disorders; Z90.81 Acquired absence of spleen; O70.0 First degree perineal laceration during delivery
CPT/HCPCS: 80053; 85027; 86850; 86900; 86901; 87635; 82565; 84156; 87086